=== PATIENT | male | born 1995 | race Caucasian/White ===

== ENCOUNTER 2019-07-04 17:17 | Emergency (ER) | payer OTHER ==
[~2019-07-04] VITALS: Ht 175.3 cm; Wt 128.4 kg
[2019-07-04 17:23] VITALS: BP 148/88; Ht 175.3 cm; Wt 128.4 kg
== END 2019-07-04 17:50 | disposition home or self-care (01) ==
LOC: ED 17:17
DX: H60.92 Unspecified otitis externa, left ear (principal)